=== PATIENT | female | born 2000 | race Two or more races ===

== ENCOUNTER 2020-09-14 18:50 | Emergency (ER) | payer SELFPAY ==
[~2020-09-14] VITALS: Ht 160 cm; Wt 101.7 kg
[2020-09-14 18:53] VITALS: BP 115/70
== END 2020-09-14 20:23 | disposition home or self-care (01) ==
LOC: ED 19:20
DX: L55.9 Sunburn, unspecified (principal); F17.210 Nicotine dependence, cigarettes, uncomplicated
CPT/HCPCS: 99281; 99406